=== PATIENT | male | born 1975 | race Native Hawaiian/Other Pacific Islander ===

== ENCOUNTER 2022-01-26 11:37 | Outpatient (CLI) | payer BC | END 2022-01-26 22:22 | disposition home or self-care (01) | LOC: NM 11:37 → EDSEX 13:00 → NM 13:00 | PROVIDERS: ATTEND Nurse Practitioner Family | DX: R10.9 Unspecified abdominal pain (principal); M54.6 Pain in thoracic spine | CPT/HCPCS: A9537 ==